=== PATIENT | female | born 1970 | race Caucasian/White ===

== ENCOUNTER 2019-04-05 08:23 | Day surgery (SDC) | payer OTHER ==
[~2019-04-05] VITALS: Ht 162.6 cm; Wt 55.8 kg
[2019-04-05] MEDS ORDERED: LIDOCAINE/EPI MPF 1%1:200000 30 ML VIAL INJ ONE (09:57)
[2019-04-05] MEDS ORDERED: BUPIVACAINE-MPF 0.25% 30 ML VIAL INJ ONE (09:58)
[2019-04-05] MEDS ORDERED: HYDROGEN PEROXIDE 3% 240 ML BTL TP ONE (10:15)
[2019-04-05] MEDS ORDERED: MORPHINE SULFATE 4 MG/ML SYR IV PRN (10:45)
[2019-04-05] MEDS ORDERED: HYDROmorphone 1 MG/ML AMP IVP PRN (10:45)
[2019-04-05] MEDS ORDERED: MORPHINE SULFATE 2 MG/ML SYR IVP PRN (10:45)
== END 2019-04-05 11:30 | disposition home or self-care (01) ==
LOC: MOR 08:23 → MMU 08:27 → MOR 11:30
PROVIDERS: ATTEND Surgery
DX: L76.34 Postprocedural seroma of skin and subcutaneous tissue following other procedure (principal); I89.8 Other specified noninfective disorders of lymphatic vessels and lymph nodes; C50.912 Malignant neoplasm of unspecified site of left female breast; I25.10 Atherosclerotic heart disease of native coronary artery without angina pectoris; Z98.82 Breast implant status
CPT/HCPCS: 10140; J2001; J3490

== ENCOUNTER 2019-04-15 10:01 | Emergency (ER) | payer OTHER ==
[~2019-04-15] VITALS: Ht 162.6 cm; Wt 54.9 kg
[2019-04-15 10:03] VITALS: BP 131/94
--- NOTE | 2019-04-15 10:22 | NUR ---
pt ambulated to bed 03
--- NOTE | 2019-04-15 10:25 | NUR ---
48 y/o female c/o pain, swelling, and redness to incision site in lt axillary region. pt states she had lymphectomy for breast cancer x 1 wk ago removing 4 lymph nodes. redness, swelling noted to incision site. pt had drain placed, states it was not draining any fluids so she cut the drain. no drainage from incision site at this time. denies fever. sitting upright in bed calm and pleasant. vss medhx: breast cancer allergies: novacaine
--- NOTE | 2019-04-15 11:24 | NUR ---
SITTING UPRIGHT IN BED, X 1 SIDE RAIL RAIL RAISED, BED LOCKED AND IN LOW POSITION. VSS. WILL CONTINUE TO MONITOR.
--- NOTE | 2019-04-15 11:53 | NUR ---
PATIENT LEFT WITHOUT BEING SEEN BY DR. VU. NO FURTHER CARE PROVIDED FOR PATIENT.
== END 2019-04-15 11:53 | disposition left against medical advice (07) ==
LOC: MED 10:01
DX: G89.18 Other acute postprocedural pain (principal); Z53.21 Procedure and treatment not carried out due to patient leaving prior to being seen by health care provider